=== PATIENT | female | born 1980 | race American Indian/Alaskan Native ===

== ENCOUNTER 2018-09-16 17:30 | Emergency (ER) | payer BC, OTHER ==
[2018-09-16] MEDS ORDERED: ATIVAN IV ONE (17:56)
[2018-09-16 18:16] LABS: Basophils # (Auto) 0.1 K/mm3 (0.0-0.1); Basophils % (Auto) 0.9 % (0.0-1.8); Eosinophils % (Auto) 0.5 % (0.0-4.3); Hematocrit 34.3 % (30.3-42.9); Hemoglobin 11.1 gm/dl (10.1-14.3); Lymphocytes # (Auto) 1.3 K/mm3 (1.2-5.4); Lymphocytes % (Auto) 15.4 % (13.4-35.0); Mean Corpuscular HGB Conc 32 % (30-34); Mean Corpuscular Volume 71 fl (79-97); Monocytes # (Auto) 0.3 K/mm3 (0.0-0.8); Platelet Count 343 K/mm3 (140-440); Red Blood Count 4.83 M/mm3 (3.65-5.03); Red Cell Distribution Width 16.1 % (13.2-15.2)
--- NOTE | 2018-09-16 18:33 | Emergency Department Report ---
<ZEFERINO VERA - Last Filed: 09/17/18 05:31> ED Seizure HPI - General Chief Complaint: Seizure Stated Complaint: SEIZURES Time Seen by Provider: 09/16/18 17:55 - Related Data Home Medications Medication Instructions Recorded Confirmed Last Taken Lacosamide [Vimpat] 100 mg PO BID 09/16/18 09/16/18 Unknown Allergies Allergy/AdvReac Type Severity Reaction Status Date / Time No Known Allergies Allergy Verified 08/09/15 15:29 ED Past Medical Hx - Medications Home Medications: Home Medications Medication Instructions Recorded Confirmed Last Taken Type Lacosamide [Vimpat] 100 mg PO BID 09/16/18 09/16/18 Unknown History ED Course - Reevaluation(s) Reevaluation #1: 09/17/18 04:16 Patient was found by nursing team at, around 01:14) The patient was on the floor, shaking. With the patient up onto the stretcher. She was given 2 mg of Ativan IM. She was still shaking. She got an additional 2 mg of Ativan IM. She is in [place] with 1 g of Keppra. She is placed back on the monitor and storage bin tender. Noncontrast CT scan of the brain, cervical spine were obtained. They were negative for acute disease. Patient has been sleeping for hours, and in no acute distress. No additional convulsive events. Plan is to wait for the patient to wake up, and discharged when sober, and able to walk without difficulty. Reevaluation #2: 09/17/18 05:31 Patient has had no convulsive events. She is still sleepy. Care will be transferred to the oncoming physician, Dr. Estee Mcdowell to reassess patient once she is awake and sober, and discharged when she is clinically sober, and able to care for herself independently. Of note, before the patient had her convulsive episode, she was instructed to not drive or operate motor vehicles for the next 6 months. ED Medical Decision Making - Lab Data Result diagrams: 09/16/18 18:06 09/16/18 18:06 Vital Signs 09/16/18 09/16/18 09/16/18 18:22 18:25 18:54 Temperature 99.3 F 99.3 F Pulse Rate 96 H 97 H Respiratory 13 13 20 Rate Blood Pressure 142/100 Blood Pressure 142/100 [Right] O2 Sat by Pulse 97 97 100 Oximetry 09/16/18 09/16/18 09/16/18 19:15 20:00 21:01 Temperature 98.9 F Pulse Rate 85 84 88 Respiratory 22 19 22 Rate Blood Pressure 126/80 135/90 Blood Pressure 130/79 [Right] O2 Sat by Pulse 99 95 Oximetry 09/16/18 09/16/18 09/17/18 22:01 23:00 00:00 Temperature Pulse Rate 97 H 84 80 Respiratory 22 22 15 Rate Blood Pressure 119/74 135/94 123/91 Blood Pressure [Right] O2 Sat by Pulse 99 Oximetry 09/17/18 09/17/18 09/17/18 01:00 02:00 03:00 Temperature Pulse Rate 79 83 78 Respiratory 19 19 18 Rate Blood Pressure 118/79 116/78 116/80 Blood Pressure [Right] O2 Sat by Pulse 98 98 97 Oximetry Lab Results 09/16/18 09/16/18 09/16/18 Range/Units 18:06 18:06 18:06 WBC 8.4 (4.5-11.0) K/mm3 RBC 4.83 (3.65-5.03) M/mm3 Hgb 11.1 (10.1-14.3) gm/dl Hct 34.3 (30.3-42.9) % MCV 71 L (79-97) fl MCH 23 L (28-32) pg MCHC 32 (30-34) % RDW 16.1 H (13.2-15.2) % Plt Count 343 (140-440) K/mm3 Lymph % (Auto) 15.4 (13.4-35.0) % [place] % (Auto) 4.0 (0.0-7.3) % Eos % (Auto) 0.5 (0.0-4.3) % Baso % (Auto) 0.9 (0.0-1.8) % Lymph # 1.3 (1.2-5.4) K/mm3 [place] # 0.3 (0.0-0.8) K/mm3 Eos # 0.0 (0.0-0.4) K/mm3 Baso # 0.1 (0.0-0.1) K/mm3 Seg Neutrophils % 79.2 H (40.0-70.0) % Seg Neutrophils # 6.7 (1.8-7.7) K/mm3 Sodium 141 (137-145) mmol/L Potassium 3.2 L (3.6-5.0) mmol/L Chloride 103.5 (98-107) mmol/L Carbon Dioxide 24 (22-30) mmol/L Anion Gap 17 mmol/L BUN 7 (7-17) mg/dL Creatinine 0.6 L (0.7-1.2) mg/dL Estimated GFR > 60 ml/min BUN/Creatinine Ratio 12 % Glucose 105 H (65-100) mg/dL Calcium 9.8 (8.4-10.2) mg/dL Magnesium (1.7-2.3) mg/dL Total Creatine Kinase (30-135) units/L Troponin T (0.00-0.029) ng/mL HCG, Qual Negative (Negative) Urine Color (Yellow) Urine Turbidity (Clear) Urine pH (5.0-7.0) Ur Specific [place] (1.003-1.030) Urine Protein (Negative) mg/dL Urine Glucose (UA) (Negative) mg/dL Urine Ketones (Negative) mg/dL Urine Blood (Negative) Urine Nitrite (Negative) Urine Bilirubin (Negative) Urine Urobilinogen (<2.0) mg/dL Ur Leukocyte Esterase (Negative) Urine WBC (Auto) (0.0-6.0) /HPF Urine RBC (Auto) (0.0-6.0) /HPF U Epithel Cells (Auto) (0-13.0) /HPF Urine Mucus /HPF 09/16/18 09/17/18 09/17/18 Range/Units 18:31 00:49 01:31 WBC (4.5-11.0) K/mm3 RBC (3.65-5.03) M/mm3 Hgb (10.1-14.3) gm/dl Hct (30.3-42.9) % MCV (79-97) fl MCH (28-32) pg MCHC (30-34) % RDW (13.2-15.2) % Plt Count (140-440) K/mm3 Lymph % (Auto) (13.4-35.0) % [place] % (Auto) (0.0-7.3) % Eos % (Auto) (0.0-4.3) % Baso % (Auto) (0.0-1.8) % Lymph # (1.2-5.4) K/mm3 [place] # (0.0-0.8) K/mm3 Eos # (0.0-0.4) K/mm3 Baso # (0.0-0.1) K/mm3 Seg Neutrophils % (40.0-70.0) % Seg Neutrophils # (1.8-7.7) K/mm3 Sodium (137-145) mmol/L Potassium (3.6-5.0) mmol/L Chloride (98-107) mmol/L Carbon Dioxide (22-30) mmol/L Anion Gap mmol/L BUN (7-17) mg/dL Creatinine (0.7-1.2) mg/dL Estimated GFR ml/min BUN/Creatinine Ratio % Glucose (65-100) mg/dL Calcium (8.4-10.2) mg/dL Magnesium 1.80 (1.7-2.3) mg/dL Total Creatine Kinase 220 H (30-135) units/L Troponin T < 0.010 (0.00-0.029) ng/mL HCG, Qual (Negative) Urine Color Yellow (Yellow) Urine Turbidity Clear (Clear) Urine pH 6.0 (5.0-7.0) Ur Specific [place] 1.023 (1.003-1.030) Urine Protein <15 mg/dl (Negative) mg/dL Urine Glucose (UA) Neg (Negative) mg/dL Urine Ketones Neg (Negative) mg/dL Urine Blood Neg (Negative) Urine Nitrite Neg (Negative) Urine Bilirubin Neg (Negative) Urine Urobilinogen < 2.0 (<2.0) mg/dL Ur Leukocyte Esterase Neg (Negative) Urine WBC (Auto) 1.0 (0.0-6.0) /HPF Urine RBC (Auto) < 1.0 (0.0-6.0) /HPF U Epithel Cells (Auto) < 1.0 (0-13.0) /HPF Urine Mucus 2+ /HPF - Radiology Data Radiology results: report reviewed, image reviewed Noncontrast CT scan of the brain, cervical spine negative for acute disease Critical Care Time: Yes Critical care time in (mins) excluding proc time.: 35 ED Disposition Clinical Impression: Seizure Disposition: DC- TO HOME OR SELFCARE Condition: Stable Instructions: Epilepsy (ED), Recurrent Seizures Adult (ED) Referrals: PRIMARY CARE, [Referring] - 3-5 Days POONAM ESPARZA MD [Referring] - 3-5 Days <CLEM MCDOWELL - Last Filed: 09/17/18 06:25> ED Medical Decision Making - Lab Data Result diagrams: 09/16/18 18:06 09/16/18 18:06 - Radiology Data Patient reevaluated by me at 6:25 AM and she is alert and oriented. Discussed with patient that she would be discharged home which she was in agreement with. <CYNTHIA NIEVESAbdulaziz - Last Filed: 09/17/18 19:47> ED Seizure HPI - General Source: family, EMS Mode of arrival: Stretcher Limitations: No Limitations - History of Present Illness Initial Comments: 38-year-old female presents to the ED following a seizure. History of seizures for which she takes Vimpat 4 times a day. Patient forgot to take her dose this morning, called her mother stating that she felt as if she was going to have a seizure, so mother brought patient's medication to her workplace. Patient took 2 pills instead of one since she forgot to take it this morning. Patient's s ister states she received a call from patient's job that the patient had a seizure. Patient is currently somewhat combative, however follows commands. Sister says this behavior that she is currently exhibiting is normal for her postictal state, and sometimes lasts for several hours. Complaint: seizure -: This afternoon Description of Episode: post-event confusion Seizure History: known seizure disorder Place: work Possible Precipitating Event: medication Treatments Prior to Arrival: none ED Review of Systems ROS: Stated complaint: SEIZURES Other details as noted in HPI Comment: All other systems reviewed and negative Cardiovascular: chest pain Gastrointestinal: denies: abdominal pain Neurological: denies: headache ED Past Medical Hx - Surgical History Additional Surgical History: breast reduction - Social History Smoking Status: Never Smoker Substance Use Type: None ED Physical Exam - General Limitations: No Limitations General appearance: alert, in no apparent distress - Head Head exam: Present: atraumatic, normocephalic - Eye Eye exam: Present: normal appearance, PERRL, EOMI - ENT ENT exam: Present: mucous membranes moist - Neck Neck exam: Present: normal inspection - Respiratory Respiratory exam: Present: normal lung sounds bilaterally. Absent: respiratory distress - Cardiovascular Cardiovascular Exam: Present: regular rate, normal rhythm - GI/Abdominal GI/Abdominal exam: Present: soft. Absent: distended, tenderness - Extremities Exam Extremities exam: Present: normal inspection - Neurological Exam Neurological exam: Present: alert, altered (oriented x 2, confused about the da te), CN II-XII intact, other (pt mildly spastic and combative, but is re- directable and will follow commands). Absent: motor sensory deficit - Psychiatric Psychiatric exam: Present: normal affect, normal mood - Skin Skin exam: Present: warm, dry, intact, normal color ED Course Vital Signs 09/16/18 09/16/18 09/16/18 18:22 18:25 18:54 Temperature 99.3 F 99.3 F Pulse Rate 96 H 97 H Respiratory 13 13 20 Rate Blood Pressure 142/100 Blood Pressure 142/100 [Right] O2 Sat by Pulse 97 97 100 Oximetry 09/16/18 09/16/18 09/16/18 19:15 20:00 21:01 Temperature 98.9 F Pulse Rate 85 84 88 Respiratory 22 19 22 Rate Blood Pressure 126/80 135/90 Blood Pressure 130/79 [Right] O2 Sat by Pulse 99 95 Oximetry 09/16/18 09/16/18 09/17/18 22:01 23:00 00:00 Temperature Pulse Rate 97 H 84 80 Respiratory 22 22 15 Rate Blood Pressure 119/74 135/94 123/91 Blood Pressure [Right] O2 Sat by Pulse 99 Oximetry 09/17/18 09/17/18 09/17/18 01:00 02:00 03:00 Temperature Pulse Rate 79 83 78 Respiratory 19 19 18 Rate Blood Pressure 118/79 116/78 116/80 Blood Pressure [Right] O2 Sat by Pulse 98 98 97 Oximetry 09/17/18 09/17/18 09/17/18 04:01 05:00 06:01 Temperature Pulse Rate 75 76 105 H Respiratory 20 20 19 Rate Blood Pressure 127/86 134/82 134/82 Blood Pressure [Right] O2 Sat by Pulse 96 97 Oximetry ED Medical Decision Making - Lab Data Result diagrams: 09/16/18 18:06 09/16/18 18:06 - EKG Data -: EKG Interpreted by Ny EKG shows normal: sinus rhythm, axis, intervals, QRS complexes, ST-T waves Rate: normal - EKG Data Interpretation: no acute changes - Differential Diagnosis seizure, med noncompliance, electrolyte abnormality Critical care attestation.: If time is entered above; I have spent that time in minutes in the direct care of this critically ill patient, excluding procedure time. ED Disposition Is pt being admited?: No
[2018-09-16 18:39] LABS: BUN/Creatinine Ratio 12; Blood Urea Nitrogen 7 mg/dL (7-17); Calcium 9.8 mg/dL (8.4-10.2); Hemolysis Index 25
[2018-09-16] MEDS ORDERED: K-DUR PO ONE (19:06)
[2018-09-16] MEDS ORDERED: ATIVAN ONE ×2 (22:38→22:40)
[2018-09-16] MEDS ORDERED: KEPPRA 1,000 MG/NS 0.75% 100ML 1,000 MG/100 ML BAG IV ONE ×2 (22:41→23:00)
[2018-09-16] MEDS ORDERED: ATIVAN IM STA ×2 (23:41)
[2018-09-17 02:04] LABS: Bilirubin,Urine NEG (Negative); Blood,Urine NEG (Negative); Color,Urine Yellow (Yellow); Mucus,Urine 2+ /HPF; Protein,Urine <15 mg/dL mg/dL (Negative); RBC,Urine < 1.0 /HPF (0.0-6.0); Urobilinogen,Urine < 2.0 mg/dL (<2.0)
--- NOTE | 2018-09-17 02:38 | Cat Scan Report ---
PROCEDURE: CT HEAD/BRAIN WO CON TECHNIQUE: Computerized tomography of the head was performed without contrast material. CT DOSE LENGTH PRODUCT: mGycm HISTORY: sz fall ams COMPARISONS: None . FINDINGS: Skull and scalp: Normal . Paranasal sinuses: Normal . Ventricles and subarachnoid spaces: Normal . Cerebrum: No evidence of hemorrhage, acute infarction or mass . Cerebellum and brainstem: No evidence of hemorrhage, acute infarction or mass . Vasculature: Normal . IMPRESSION: Normal Examination . This document is electronically signed by Rj Ansari MD., September 17 2018 02:36:55 AM ET
--- NOTE | 2018-09-17 02:54 | Cat Scan Report ---
PROCEDURE: CT CERVICAL SPINE WO CON TECHNIQUE: Computerized tomography of the cervical spine was performed from the skull base to T1 wit hout contrast material. CT DOSE LENGTH PRODUCT: mGycm HISTORY: sz fall ams COMPARISONS: None . FINDINGS: Skull base and foramen magnum are intact. Cervical vertebrae are intact. There are no fractures or ma lalignments. C1-2: No significant abnormality . C2-3: No significant abnormality . C3-4: No significant abnormality . C4-5: No significant abnormality . C5-6: No significant abnormality . C6-7: No significant abnormality . C7-T1: No significant abnormality . Fractures: None . Other: Soft tissues are unremarkable. . Images of the upper thorax demonstrate possible mediastinal mass versus artifact. Correlation with est x-ray recommended. IMPRESSION: There is no acute cervical spine injury. Images of the upper thorax demonstrate possible mediastinal mass versus artifact. Correlation with est x-ray recommended. This document is electronically signed by Rj Ansari MD., September 17 2018 02:52:34 AM ET
[2018-09-17 05:15] VITALS: BP 134/82
== END 2018-09-17 07:30 | disposition home or self-care (01) ==
LOC: ED 17:30
DX: G40.909 Epilepsy, unspecified, not intractable, without status epilepticus (principal)
CPT/HCPCS: 36415; 70450; 72125; 80048; 81001; 82550; 83735; 84484; 84703; 85025; 93005; 93010; 96365; 96372; 96375; 99285; J1953; J2060

== ENCOUNTER 2021-06-20 17:52 | Emergency (ER) | payer OTHER ==
[2021-06-20] MEDS ORDERED: BRIVARACETAM 100 MG PO STA (17:58)
[2021-06-20] MEDS ORDERED: NON-FORMULARY EACH (Lacosamide [Vimpat] 200 MG Tablet) PO STA (17:58)
[2021-06-20] MEDS ORDERED: levETIRAcetam 500 MG TAB PO ONE (17:59)
--- NOTE | 2021-06-20 18:04 | Event Note ---
Date: 06/20/21 The patient was evaluated in the emergency department for symptoms described in the history of present illness. He/she was evaluated in the context of the global COVID-19 pandemic, which necessitated consideration that the patient might be at risk for infection with the virus that causes COVID-19. Institutional protocols and algorithms that pertain to the evaluation of patients at risk for COVID-19 are in a state of rapid change based on information released by regulatory bodies including the CDC and federal and state organizations. These policies and algorithms were followed during the patient's care in the emergency department. Please note that these policies, procedures and recommendations changed on a rapid basis. Verbal report received from emergency medical services. EMS documentation not available at time of chart dictation Old medical records reviewed and appreciated. Patient is a 40-year-old female, who reports that she is not , and reports that she has not delivered her given in the past 6 weeks. Patient recently admitted to the medical service last month for convulsive event please see recent discharge summary. Patient brought to the hospital today by emergency medical services with an EMS articulated complaint of patient having had seizures at school. As per review of old medical records, patient has a history of amphetamine and/or possible cocaine abuse. They report that the patient had normal vital signs in the field, and further report that the patient was sitting on a chair/desk, and that Deysi is by called 911. The patient is intermittently compliant with her Vimpat and Keppra. She complains of chest wall pain present for 1 month. She denies travel, surgery, leg pain, leg swelling oral contraceptive use. She denies drug use to myself. Place patient on phototypesetting equipment monitor, obtain EKG, laboratory studies, give patient oral Keppra, oral Vimpat, detailed history and physical examination to be performed by oncoming ER provider Vital Signs 06/20/21 17:53 Pulse Rate 93 H Respiratory 16 Rate Blood Pressure 136/94 [Left] O2 Sat by Pulse 98 Oximetry
[2021-06-20] MEDS ORDERED: LACOSAMIDE 100 MG TAB PO STA (18:08)
[2021-06-20 20:33] LABS: Blood Urea Nitrogen 6 mg/dL (7-17); Calcium 9.7 mg/dL (8.4-10.2); Hemolysis Index 8
[2021-06-20 20:36] LABS: BUN/Creatinine Ratio 12
[2021-06-20 20:37] LABS: Hematocrit 30.2 % (30.3-42.9); Hemoglobin 8.9 gm/dl (10.1-14.3)
--- NOTE | 2021-06-20 22:59 | Emergency Department Report ---
ED Seizure HPI - General Chief Complaint: Seizure Stated Complaint: SEIZURES Source: EMS Mode of arrival: Stretcher Limitations: No Limitations - History of Present Illness Initial Comments: Patient is a 40-year-old female, who reports that she is not , and reports that she has not delivered her given in the past 6 weeks. Patient recently admitted to the medical service last month for convulsive event please see recent discharge summary. Patient brought to the hospital today by emergency medical services with an EMS articulated complaint of patient having had seizures at school. As per review of old medical records, patient has a history of amphetamine and/or possible cocaine abuse. They report that the patient had normal vital signs in the field, and further report that the patient was sitting on a chair/desk, and that Deysi is by called 911. The patient is intermittently compliant with her Vimpat and Keppra. She complains of chest wall pain present for 1 month. She denies travel, surgery, leg pain, leg swelling oral contraceptive use. She denies drug use to myself. MD Complaint: seizure - Related Data Home Medications Medication Instructions Recorded Confirmed Last Taken Brivaracetam [Briviact] 100 mg PO BID 05/14/21 05/14/21 Unknown Lacosamide [Vimpat] 200 mg PO BID 05/14/21 05/14/21 Unknown amLODIPine 10 mg PO DAILY 05/14/21 05/14/21 Unknown Previous Rx's Medication Instructions Recorded Last Taken Type Potassium Chloride [K-Dur] 10 meq PO QDAY #14 05/20/21 Unknown Rx Spironolactone [Aldactone] 50 mg PO QDAY #30 tablet 05/20/21 Unknown Rx Allergies Allergy/AdvReac Type Severity Reaction Status Date / Time No Known Allergies Allergy Verified 05/14/21 15:52 ED Review of Systems ROS: Stated complaint: SEIZURES Other details as noted in HPI Comment: All other systems reviewed and negative Constitutional: denies: chills, fever Respiratory: denies: cough, shortness of breath, SOB with exertion Cardiovascular: denies: chest pain, palpitations Gastrointestinal: denies: abdominal pain, nausea, vomiting ED Past Medical Hx - Past Medical History Hx Hypertension: Yes Hx Congestive Heart Failure: No Hx Diabetes: No Hx Seizures: Yes Hx Asthma: No Hx COPD: No - Surgical History Additional Surgical History: breast reduction - Social History Smoking Status: Never Smoker - Medications Home Medications: Home Medications Medication Instructions Recorded Confirmed Last Taken Type Brivaracetam [Briviact] 100 mg PO BID 05/14/21 05/14/21 Unknown History Lacosamide [Vimpat] 200 mg PO BID 05/14/21 05/14/21 Unknown History amLODIPine 10 mg PO DAILY 05/14/21 05/14/21 Unknown History Potassium Chloride [K-Dur] 10 meq PO QDAY #14 05/20/21 Unknown Rx Spironolactone [Aldactone] 50 mg PO QDAY #30 tablet 05/20/21 Unknown Rx ED Physical Exam - General Limitations: No Limitations General appearance: alert, in no apparent distress - Head Head exam: Present: atraumatic, normocephalic, normal inspection - Eye Eye exam: Present: normal appearance - ENT ENT exam: Present: normal exam, normal orophraynx, mucous membranes moist - Neck Neck exam: Present: normal inspection, full ROM. Absent: tenderness, meningismus - Respiratory Respiratory exam: Present: normal lung sounds bilaterally - Cardiovascular Cardiovascular Exam: Present: regular rate, normal rhythm, normal heart sounds - GI/Abdominal GI/Abdominal exam: Present: soft, normal bowel sounds. Absent: distended, tenderness, guarding, rebound, rigid - Neurological Exam Neurological exam: Present: alert, oriented X3, CN II-XII intact. Absent: motor sensory deficit - Psychiatric Psychiatric exam: Present: normal mood. Absent: suicidal ideation - Skin Skin exam: Present: warm, intact, normal color ED Course Vital Signs 06/20/21 17:53 Pulse Rate 93 H Respiratory 16 Rate Blood Pressure 136/94 [Left] O2 Sat by Pulse 98 Oximetry ED Medical Decision Making - Lab Data Result diagrams: 06/20/21 20:03 06/20/21 20:03 Critical care attestation.: If time is entered above; I have spent that time in minutes in the direct care of this critically ill patient, excluding procedure time. ED Disposition Clinical Impression: Seizure Disposition: 01 HOME / SELF CARE / HOMELESS Is pt being admited?: No Condition: Stable Instructions: Seizure, Adult Referrals: PRIMARY CARE,MD [Primary Care Provider] - 3-5 Days
[2021-06-20 23:11] VITALS: BP 144/72
== END 2021-06-20 23:09 | disposition home or self-care (01) ==
LOC: ED 17:52
DX: R56.9 Unspecified convulsions (principal); I10 Essential (primary) hypertension; Z98.890 Other specified postprocedural states; Z79.899 Other long term (current) drug therapy
CPT/HCPCS: 36415; 80048; 80320; 82550; 83735; 85014; 85018; 93005; 99283; G0480

== ENCOUNTER 2021-11-30 03:30 | Emergency (ER) | payer SELFPAY ==
[2021-11-30] MEDS ORDERED: LORazepam 2 MG/ML VIAL ONE (03:38)
[2021-11-30] MEDS ORDERED: LORazepam 2 MG/ML VIAL IV ONE (03:57)
[2021-11-30] MEDS ORDERED: levETIRAcetam 1000 MG/NS 0.75% 1,000 MG/100 ML BAG IV ONE (03:57)
[2021-11-30 04:55] LABS: Basophils # (Auto) 0.1 K/mm3 (0.0-0.1); Eosinophils # (Auto) 0.1 K/mm3 (0.0-0.4); Eosinophils % (Auto) 1.3 % (0.0-4.3); Lymphocytes # (Auto) 1.6 K/mm3 (1.2-5.4); Lymphocytes % (Auto) 28.3 % (13.4-35.0); Mean Corpuscular HGB Conc 29 % (30-34); Monocytes # (Auto) 0.4 K/mm3 (0.0-0.8); Monocytes % (Auto) 7.7 % (0.0-7.3); Platelet Count 326 K/mm3 (140-440); Red Blood Count 4.74 M/mm3 (3.65-5.03)
[2021-11-30 04:59] LABS: Hematocrit 25.8 % (30.3-42.9); Hemoglobin 7.5 gm/dl (10.1-14.3); Mean Corpuscular Volume 55 fl (79-97); Red Cell Distribution Width 21.7 % (13.2-15.2)
[2021-11-30 05:13] LABS: Blood Urea Nitrogen 9 mg/dL (7-17); Calcium 9.4 mg/dL (8.4-10.2); Hemolysis Index 1
[2021-11-30 05:53] LABS: BUN/Creatinine Ratio 15
[2021-11-30] MEDS ORDERED: POTASSIUM CHLORIDE ER 20 MEQ TAB PO ONE (06:59)
--- NOTE | 2021-11-30 09:07 | Emergency Department Report ---
ED Seizure HPI - General Chief Complaint: Seizure Stated Complaint: SEIZURE Time Seen by Provider: 11/30/21 06:59 Source: EMS Mode of arrival: Ambulatory Limitations: No Limitations - History of Present Illness Initial Comments: Patient is a 41-year-old female with history of seizures brought in for evaluation after having a seizure. She reportedly recently had her seizure medications increased and has not been compliant with her meds citing side eff ects. - Related Data Home Medications Medication Instructions Recorded Confirmed Last Taken Brivaracetam [Briviact] 100 mg PO BID 05/14/21 05/14/21 Unknown Lacosamide [Vimpat] 200 mg PO BID 05/14/21 05/14/21 Unknown amLODIPine 10 mg PO DAILY 05/14/21 05/14/21 Unknown Previous Rx's Medication Instructions Recorded Last Taken Type Potassium Chloride [K-Dur] 10 meq PO QDAY #14 05/20/21 Unknown Rx Spironolactone [Aldactone] 50 mg PO QDAY #30 tablet 05/20/21 Unknown Rx Lacosamide [Vimpat] 200 mg PO BID #60 06/20/21 Unknown Rx levETIRAcetam [Keppra TAB] 500 mg PO BID #60 tablet 06/20/21 Unknown Rx Allergies Allergy/AdvReac Type Severity Reaction Status Date / Time No Known Allergies Allergy Verified 05/14/21 15:52 ED Review of Systems ROS: Stated complaint: SEIZURE Other details as noted in HPI Comment: Unobtainable due to pts medical conditions (Postictal) ED Past Medical Hx - Past Medical History Hx Hypertension: Yes Hx Congestive Heart Failure: No Hx Diabetes: No Hx Seizures: Yes Hx Asthma: No Hx COPD: No - Surgical History Additional Surgical History: breast reduction - Social History Smoking Status: Unknown if ever smoked Substance Use Type: Other - Medications Home Medications: Home Medications Medication Instructions Recorded Confirmed Last Taken Type Brivaracetam [Briviact] 100 mg PO BID 05/14/21 05/14/21 Unknown History Lacosamide [Vimpat] 200 mg PO BID 05/14/21 05/14/21 Unknown History amLODIPine 10 mg PO DAILY 05/14/21 05/14/21 Unknown History Potassium Chloride [K-Dur] 10 meq PO QDAY #14 05/20/21 Unknown Rx Spironolactone [Aldactone] 50 mg PO QDAY #30 tablet 05/20/21 Unknown Rx Lacosamide [Vimpat] 200 mg PO BID #60 06/20/21 Unknown Rx levETIRAcetam [Keppra TAB] 500 mg PO BID #60 tablet 06/20/21 Unknown Rx ED Physical Exam - General Limitations: No Limitations General appearance: in no apparent distress, postictal - Head Head exam: Present: atraumatic, normocephalic - Respiratory Respiratory exam: Present: normal lung sounds bilaterally. Absent: respiratory distress - Cardiovascular Cardiovascular Exam: Present: regular rate, normal rhythm, normal heart sounds - GI/Abdominal GI/Abdominal exam: Present: soft. Absent: distended - Rectal Rectal exam: Present: deferred - Neurological Exam Neurological exam: Present: other (Postictal) - Skin Skin exam: Present: warm, dry, intact, normal color ED Course Vital Signs 11/30/21 11/30/21 11/30/21 03:32 03:49 03:54 Temperature 98.5 F 98.3 F Pulse Rate 91 H 89 Respiratory 16 19 19 Rate Blood Pressure 155/96 Blood Pressure 131/83 [Right] O2 Sat by Pulse 99 100 100 Oximetry 11/30/21 11/30/21 11/30/21 04:00 04:16 04:30 Temperature Pulse Rate 85 84 80 Respiratory 19 19 18 Rate Blood Pressure 131/83 131/83 110/69 Blood Pressure [Right] O2 Sat by Pulse 100 100 100 Oximetry 11/30/21 11/30/21 11/30/21 04:46 05:00 05:16 Temperature Pulse Rate 90 76 76 Respiratory 21 18 19 Rate Blood Pressure 110/69 110/70 110/70 Blood Pressure [Right] O2 Sat by Pulse 100 100 100 Oximetry 11/30/21 11/30/21 11/30/21 05:30 05:46 06:00 Temperature Pulse Rate 75 75 79 Respiratory 19 19 20 Rate Blood Pressure 93/56 93/56 93/56 Blood Pressure [Right] O2 Sat by Pulse 100 100 100 Oximetry 11/30/21 11/30/21 11/30/21 06:16 06:30 06:46 Temperature Pulse Rate 69 69 69 Respiratory 18 17 19 Rate Blood Pressure 103/67 103/67 Blood Pressure [Right] O2 Sat by Pulse 100 100 100 Oximetry 11/30/21 11/30/2111/30/22 07:00 07:16 07:30 Temperature Pulse Rate 89 73 70 Respiratory 19 18 20 Rate Blood Pressure 105/66 105/66 109/72 Blood Pressure [Right] O2 Sat by Pulse Oximetry 11/30/21 11/30/21 11/30/21 07:46 08:00 08:16 Temperature Pulse Rate 72 71 76 Respiratory 20 19 20 Rate Blood Pressure 109/72 106/63 106/63 Blood Pressure [Right] O2 Sat by Pulse Oximetry 11/30/21 11/30/21 11/30/21 08:30 08:46 09:00 Temperature Pulse Rate 71 77 75 Respiratory 19 22 23 Rate Blood Pressure 108/68 108/68 105/58 Blood Pressure [Right] O2 Sat by Pulse Oximetry 11/30/21 11/30/21 11/30/21 09:16 09:30 09:46 Temperature Pulse Rate 69 68 71 Respiratory 19 15 19 Rate Blood Pressure 105/58 110/67 110/67 Blood Pressure [Right] O2 Sat by Pulse Oximetry 11/30/21 11/30/21 11/30/21 10:00 10:16 10:30 Temperature Pulse Rate 68 71 67 Respiratory 20 19 19 Rate Blood Pressure 99/52 99/52 99/49 Blood Pressure [Right] O2 Sat by Pulse Oximetry 11/30/21 11/30/21 10:46 11:00 Temperature Pulse Rate 68 77 Respiratory 18 18 Rate Blood Pressure 99/49 96/64 Blood Pressure [Right] O2 Sat by Pulse Oximetry ED Medical Decision Making - Lab Data Result diagrams: 11/30/21 04:07 11/30/21 04:07 - Medical Decision Making Patient loaded with 1 g of IV Keppra. Labs reviewed. Mild hypokalemia noted at 3.1. Patient given oral replacement. On reassessment patient is alert and oriented. She is stable for discharge. Critical care attestation.: If time is entered above; I have spent that time in minutes in the direct care of this critically ill patient, excluding procedure time. ED Disposition Clinical Impression: Seizure Disposition: 01 HOME / SELF CARE / HOMELESS Is pt being admited?: No Condition: Stable Instructions: Seizure, Adult, [id number] Time of Disposition: 11:33
[2021-11-30 11:04] VITALS: BP 96/64
== END 2021-11-30 12:54 | disposition home or self-care (01) ==
LOC: ED 03:30
DX: R56.9 Unspecified convulsions (principal); I10 Essential (primary) hypertension; Z79.899 Other long term (current) drug therapy
CPT/HCPCS: 36415; 80048; 82962; 83735; 84703; 85025; 96374; 96375; 99284; J1953; J2060

== ENCOUNTER 2021-12-02 00:49 | Inpatient (IN) | payer SELFPAY ==
[2021-12-02] MEDS ORDERED: LORazepam 2 MG/ML VIAL IV ONE ×2 (01:02→10:19)
[2021-12-02] MEDS ORDERED: levETIRAcetam 1000 MG/NS 0.75% 1,000 MG/100 ML BAG IV ONE (02:04)
[2021-12-02] MEDS ORDERED: LACOSAMIDE 200 MG in SODIUM CHLORIDE 0.9% 100 ML IV ONE (02:05)
[2021-12-02 02:11] LABS: Blood Urea Nitrogen 9 mg/dL (7-17); Calcium 9.4 mg/dL (8.4-10.2); Hemolysis Index 34
[2021-12-02 02:12] LABS: BUN/Creatinine Ratio 15
--- NOTE | 2021-12-02 04:33 | Emergency Department Report ---
<MAGDALENEBRANDIE BHASKAR - Last Filed: 12/02/21 04:32> ED Seizure HPI - General Chief Complaint: Seizure Stated Complaint: SEIZURE Time Seen by Provider: 12/02/21 01:01 Source: patient Mode of arrival: Stretcher Limitations: No Limitations - History of Present Illness Initial Comments: Patient is a 41-year-old female with history of seizures brought in by EMS after having a seizure. She was seen here yesterday for the same and loaded with IV Keppra. Patient reportedly is noncompliant with her medications after recently having her dosages increased. - Related Data Home Medications Medication Instructions Recorded Confirmed Last Taken Brivaracetam [Briviact] 100 mg PO BID 05/14/21 05/14/21 Unknown Lacosamide [Vimpat] 200 mg PO BID 05/14/21 05/14/21 Unknown amLODIPine 10 mg PO DAILY 05/14/21 05/14/21 Unknown Previous Rx's Medication Instructions Recorded Last Taken Type Potassium Chloride [K-Dur] 10 meq PO QDAY #14 05/20/21 Unknown Rx Spironolactone [Aldactone] 50 mg PO QDAY #30 tablet 05/20/21 Unknown Rx Lacosamide [Vimpat] 200 mg PO BID #60 06/20/21 Unknown Rx levETIRAcetam [Keppra TAB] 500 mg PO BID #60 tablet 06/20/21 Unknown Rx Allergies Allergy/AdvReac Type Severity Reaction Status Date / Time No Known Allergies Allergy Verified 12/02/21 03:16 ED Review of Systems Comment: Unobtainable due to pts medical conditions ED Past Medical Hx - Past Medical History Previous Medical History?: Yes Hx Hypertension: Yes Hx Congestive Heart Failure: No Hx Diabetes: No Hx Seizures: Yes Hx Asthma: No Hx COPD: No - Surgical History Past Surgical History?: Yes Additional Surgical History: breast reduction - Social History Smoking Status: Unknown if ever smoked - Medications Home Medications: Home Medications Medication Instructions Recorded Confirmed Last Taken Type Brivaracetam [Briviact] 100 mg PO BID 05/14/21 05/14/21 Unknown History Lacosamide [Vimpat] 200 mg PO BID 05/14/21 05/14/21 Unknown History amLODIPine 10 mg PO DAILY 05/14/21 05/14/21 Unknown History Potassium Chloride [K-Dur] 10 meq PO QDAY #14 05/20/21 Unknown Rx Spironolactone [Aldactone] 50 mg PO QDAY #30 tablet 05/20/21 Unknown Rx Lacosamide [Vimpat] 200 mg PO BID #60 06/20/21 Unknown Rx levETIRAcetam [Keppra TAB] 500 mg PO BID #60 tablet 06/20/21 Unknown Rx ED Physical Exam - General Limitations: No Limitations General appearance: postictal - Head Head exam: Present: atraumatic, normocephalic - Respiratory Respiratory exam: Present: normal lung sounds bilaterally. Absent: respiratory distress - Cardiovascular Cardiovascular Exam: Present: regular rate, normal rhythm, normal heart sounds - GI/Abdominal GI/Abdominal exam: Present: soft. Absent: distended - Rectal Rectal exam: Present: deferred - Neurological Exam Neurological exam: Present: other (Postictal) - Skin Skin exam: Present: warm, dry, intact, normal color ED Medical Decision Making - Lab Data Result diagrams: 12/02/21 01:16 ED Disposition Clinical Impression: Status epilepticus Disposition: ADMITTED INPATIENT Condition: Fair <ЮЛИЯ ROYAL - Last Filed: 12/02/21 11:53> ED Review of Systems ROS: Stated complaint: SEIZURE Other details as noted in HPI ED Course Vital Signs 12/02/21 12/02/21 12/02/21 00:50 01:05 01:16 Temperature 98 F Pulse Rate 83 106 H 78 Respiratory 18 32 H 14 Rate Blood Pressure 132/85 134/79 O2 Sat by Pulse 100 100 Oximetry 12/02/21 12/02/21 12/02/21 01:30 01:46 02:00 Temperature Pulse Rate 71 76 72 Respiratory 19 19 17 Rate Blood Pressure 116/65 116/65 106/59 O2 Sat by Pulse 100 100 100 Oximetry 12/02/21 12/02/21 12/02/21 02:16 02:30 02:46 Temperature Pulse Rate 70 68 75 Respiratory 18 17 17 Rate Blood Pressure 106/59 91/43 91/43 O2 Sat by Pulse 100 100 100 Oximetry 12/02/21 12/02/21 12/02/21 03:00 03:16 03:30 Temperature Pulse Rate 69 96 H 86 Respiratory 17 22 19 Rate Blood Pressure 115/60 115/60 123/66 O2 Sat by Pulse 100 100 100 Oximetry 12/02/21 12/02/21 12/02/21 03:46 04:00 04:04 Temperature Pulse Rate 71 73 Respiratory 17 21 Rate Blood Pressure 123/66 102/56 O2 Sat by Pulse 100 100 100 Oximetry 12/02/21 12/02/21 12/02/21 04:16 04:30 04:46 Temperature Pulse Rate 70 69 71 Respiratory 19 19 19 Rate Blood Pressure 102/56 96/47 96/47 O2 Sat by Pulse 100 100 100 Oximetry 12/02/21 12/02/21 12/02/21 05:00 05:16 05:30 Temperature Pulse Rate 73 71 69 Respiratory 18 18 16 Rate Blood Pressure 114/64 114/64 90/47 O2 Sat by Pulse 100 100 100 Oximetry 12/02/21 12/02/21 12/02/21 05:46 06:00 06:16 Temperature Pulse Rate 69 72 74 Respiratory 18 20 19 Rate Blood Pressure 90/47 92/57 92/57 O2 Sat by Pulse 100 100 100 Oximetry 12/02/21 12/02/21 12/02/21 06:30 06:46 07:00 Temperature Pulse Rate 72 91 H 78 Respiratory 18 28 H 20 Rate Blood Pressure 113/64 113/64 133/74 O2 Sat by Pulse 100 100 100 Oximetry 12/02/21 12/02/21 12/02/21 07:16 07:30 07:46 Temperature Pulse Rate 78 76 71 Respiratory 19 28 H 19 Rate Blood Pressure 133/74 133/74 133/74 O2 Sat by Pulse 100 100 100 Oximetry 12/02/21 12/02/21 08:00 08:16 Temperature Pulse Rate 69 78 Respiratory 20 23 Rate Blood Pressure 111/63 111/63 O2 Sat by Pulse 100 100 Oximetry - Reevaluation(s) Reevaluation #1: 12/02/21 10:20 Patient had another generalized tonic-clonic seizure witnessed by nursing. Patient never recovered from postictal state. Will admit for status epilepticus ED Medical Decision Making - Lab Data Result diagrams: 12/02/21 10:33 12/02/21 01:16 Critical care attestation.: If time is entered above; I have spent that time in minutes in the direct care of this critically ill patient, excluding procedure time. ED Disposition Is pt being admited?: Yes Does the pt Need Aspirin: No Time of Disposition: 11:53 (Care transferred to hospitalist (Dr. Martin))
[2021-12-02] MEDS ORDERED: LORazepam 2 MG/ML VIAL ONE (10:17)
[2021-12-02 11:01] LABS: Basophils # (Auto) 0.1 K/mm3 (0.0-0.1); Basophils % (Auto) 1.4 % (0.0-1.8); Eosinophils % (Auto) 0.6 % (0.0-4.3); Hematocrit 25.3 % (30.3-42.9); Hemoglobin 7.5 gm/dl (10.1-14.3); Lymphocytes # (Auto) 1.8 K/mm3 (1.2-5.4); Lymphocytes % (Auto) 29.5 % (13.4-35.0); Mean Corpuscular HGB Conc 30 % (30-34); Mean Corpuscular Volume 55 fl (79-97); Monocytes # (Auto) 0.5 K/mm3 (0.0-0.8); Monocytes % (Auto) 7.4 % (0.0-7.3); Platelet Count 291 K/mm3 (140-440); Red Blood Count 4.63 M/mm3 (3.65-5.03); Red Cell Distribution Width 22.4 % (13.2-15.2)
[2021-12-02] MEDS ORDERED: MORPHINE 2 MG/1 ML INJ IV PRN (18:00)
[2021-12-02] MEDS ORDERED: ACETAMINOPHEN 325 MG TAB PO PRN (18:00)
--- NOTE | 2021-12-02 18:00 | History and Physical Report ---
History of Present Illness Date of examination: 12/02/21 Date of admission: 12/02/2021 Chief complaint: Seizures x2 in the emergency room Patient is postictal History of present illness: Patient is a 41-year-old female with history of seizures brought in by EMS after having a seizure. She was seen here yesterday for the same and loaded with IV Keppra. Patient reportedly is noncompliant with her medications after recently having her dosages increased. Patient continues to be postictal --had 1 more episode of seizures while in the emergency room-- - Past Medical History Previous Medical History?: Yes Hx Hypertension: Yes Hx Seizures: Yes - Surgical Histor --Past Surgical History?: Yes --Additional Surgical History: breast reduction - Social History --Smoking Status: Unknown if ever smoked - Medications --Home Medications: Home Medications Medication Instructions Recorded Confirmed Last Taken Type Brivaracetam [Briviact] 100 mg PO BID 05/14/21 05/14/21 Unknown History Lacosamide [Vimpat] 200 mg PO BID 05/14/21 05/14/21 Unknown History amLODIPine 10 mg PO DAILY 05/14/21 05/14/21 Unknown History Potassium Chloride [K-Dur] 10 meq PO QDAY #14 05/20/21 Unknown Rx Spironolactone [Aldactone] 50 mg PO QDAY #30 tablet 05/20/21 Unknown Rx Lacosamide [Vimpat] 200 mg PO BID #60 06/20/21 Unknown Rx levETIRAcetam [Keppra TAB] 500 mg PO BID #60 tablet 06/20/21 Unknown Rx Review of Systems Comment: Unobtainable due to pts medical conditions Medications and Allergies Allergies Allergy/AdvReac Type Severity Reaction Status Date / Time No Known Allergies Allergy Verified 12/02/21 03:16 Home Medications Medication Instructions Recorded Confirmed Last Taken Type Brivaracetam [Briviact] 100 mg PO BID 05/14/21 12/03/21 Unknown History Lacosamide [Vimpat] 200 mg PO BID 05/14/21 12/03/21 Unknown History amLODIPine 10 mg PO DAILY 05/14/21 12/03/21 Unknown History Potassium Chloride [K-Dur] 10 meq PO QDAY #14 05/20/21 12/03/21 Unknown Rx Spironolactone [Aldactone] 50 mg PO QDAY #30 tablet 05/20/21 12/03/21 Unknown Rx Lacosamide [Vimpat] 200 mg PO BID #60 06/20/21 12/03/21 Unknown Rx levETIRAcetam [Keppra TAB] 500 mg PO BID #60 tablet 06/20/21 12/03/21 Unknown Rx Exam - Constitutional Vitals: Temp Pulse Resp BP Pulse Ox 98 F 95 H 15 131/89 100 12/02/21 00:50 12/02/21 17:31 12/02/21 17:31 12/02/21 17:31 12/02/21 16:46 General appearance: Present: mild distress, well-nourished - EENT Eyes: Present: PERRL ENT: hearing intact, clear oral mucosa - Neck Neck: Present: supple, normal ROM - Respiratory Respiratory effort: normal Respiratory: bilateral: CTA - Cardiovascular Heart rate: 78 Rhythm: regular Heart Sounds: Present: S1 & S2. Absent: rub, click - Extremities Extremities: pulses symmetrical, No edema Peripheral Pulses: within normal limits - Abdominal General gastrointestinal: Present: soft, non-tender, non-distended, normal bowel sounds Female genitourinary: Present: normal - Integumentary Integumentary: Present: clear, warm, dry - Musculoskeletal Musculoskeletal: generalized weakness - Psychiatric Psychiatric: other (Altered sensorium-postictal) - Neurologic Neurologic: CNII-XII intact, moves all extremities - Allied Health Allied health notes reviewed: nursing, case management Results - Labs CBC & Chem 7: 12/03/21 05:26 12/03/21 05:26 Labs: Laboratory Last Values WBC 6.2 K/mm3 (4.5-11.0) 12/02/21 10:33 RBC 4.63 M/mm3 (3.65-5.03) 12/02/21 10:33 Hgb 7.5 gm/dl (10.1-14.3) L 12/02/21 10:33 Hct 25.3 % (30.3-42.9) L 12/02/21 10:33 MCV 55 fl (79-97) L 12/02/21 10:33 MCH 16 pg (28-32) L 12/02/21 10:33 MCHC 30 % (30-34) 12/02/21 10:33 RDW 22.4 % (13.2-15.2) H 12/02/21 10:33 Plt Count 291 K/mm3 (140-440) 12/02/21 10:33 Lymph % (Auto) 29.5 % (13.4-35.0) 12/02/21 10:33 [place] % (Auto) 7.4 % (0.0-7.3) H 12/02/21 10:33 Eos % (Auto) 0.6 % (0.0-4.3) 12/02/21 10:33 Baso % (Auto) 1.4 % (0.0-1.8) 12/02/21 10:33 Lymph # (Auto) 1.8 K/mm3 (1.2-5.4) 12/02/21 10:33 [place] # (Auto) 0.5 K/mm3 (0.0-0.8) 12/02/21 10:33 Eos # (Auto) 0.0 K/mm3 (0.0-0.4) 12/02/21 10:33 Baso # (Auto) 0.1 K/mm3 (0.0-0.1) 12/02/21 10:33 Seg Neutrophils % 61.1 % (40.0-70.0) 12/02/21 10:33 Seg Neutrophils # 3.8 K/mm3 (1.8-7.7) 12/02/21 10:33 Sodium 142 mmol/L (137-145) 12/02/21 01:16 Potassium 3.6 mmol/L (3.6-5.0) 12/02/21 01:16 Chloride 106.2 mmol/L (98-107) 12/02/21 01:16 Carbon Dioxide 24 mmol/L (22-30) 12/02/21 01:16 Anion Gap 15 mmol/L 12/02/21 01:16 BUN 9 mg/dL (7-17) 12/02/21 01:16 Creatinine 0.6 mg/dL (0.6-1.2) 12/02/21 01:16 Estimated GFR > 60 ml/min 12/02/21 01:16 BUN/Creatinine Ratio 15 % 12/02/21 01:16 Glucose 103 mg/dL (65-100) H 12/02/21 01:16 Calcium 9.4 mg/dL (8.4-10.2) 12/02/21 01:16 Magnesium 1.80 mg/dL (1.7-2.3) 12/02/21 10:33 Total Creatine Kinase 77 units/L (30-135) 12/02/21 10:33 Assessment and Plan Advance Directives: Yes (Full code) VTE prophylaxis?: Chemical Plan of care discussed with patient/family: Yes - Patient Problems (1) Acute encephalopathy Current Visit: Yes Status: Acute Plan to address problem: Secondary to seizures and postictal state (2) Status epilepticus Current Visit: Yes Status: Acute Plan to address problem: Patient initiated on IV Keppra Noncompliance Patient counseled about noncompliance Vimpat if necessary Neurology consult requested (3) DVT prophylaxis Current Visit: No Status: Acute Plan to address problem: On anticoagulation GI prophylaxis (4) Advance care planning Current Visit: Yes Status: Acute Plan to address problem: Disease education conducted, care plan discussed, diagnosis discussed, prognosis discussed. Patient acknowledged understanding and agreement with care plan. +30 minutes.
[2021-12-02] MEDS: LACOSAMIDE 200 MG in SODIUM CHLORIDE 0.9% 100 ML IV SCH (20:00)
[2021-12-02] MEDS: D5W/0.9% NACL 1,000 ML IV SCH (20:03)
[2021-12-02] MEDS: levETIRAcetam 1,000 MG in DEXTROSE 5% IN WATER 100 ML IV SCH (21:46)
[2021-12-02] MEDS: HEPARIN 5,000 UNIT/1 ML VIAL SUB-Q SCH (23:46)
[2021-12-02] MEDS: FAMOTIDINE 20 MG TAB PO SCH (23:47)
[2021-12-03 06:20] LABS: Basophils # (Auto) 0.1 K/mm3 (0.0-0.1); Basophils % (Auto) 1.2 % (0.0-1.8); Eosinophils # (Auto) 0.1 K/mm3 (0.0-0.4); Eosinophils % (Auto) 0.5 % (0.0-4.3); Hematocrit 25.4 % (30.3-42.9); Hemoglobin 7.5 gm/dl (10.1-14.3); Lymphocytes # (Auto) 2.9 K/mm3 (1.2-5.4); Lymphocytes % (Auto) 30.6 % (13.4-35.0); Mean Corpuscular HGB Conc 29 % (30-34); Monocytes # (Auto) 0.6 K/mm3 (0.0-0.8); Monocytes % (Auto) 5.9 % (0.0-7.3); Red Blood Count 4.67 M/mm3 (3.65-5.03)
[2021-12-03 06:28] LABS: Mean Corpuscular Volume 54 fl (79-97); Platelet Count 236 K/mm3 (140-440); Red Cell Distribution Width 22.3 % (13.2-15.2)
[2021-12-03] MEDS: LACOSAMIDE 200 MG in SODIUM CHLORIDE 0.9% 100 ML IV SCH ×3 (06:30→18:34)
[2021-12-03 06:39] LABS: Alanine Aminotransferase 6 units/L (7-56); Blood Urea Nitrogen 6 mg/dL (7-17); Calcium 9.3 mg/dL (8.4-10.2); Hemolysis Index 28
[2021-12-03 06:47] LABS: BUN/Creatinine Ratio 15
[2021-12-03] MEDS: ONDANSETRON 4 MG/2 ML INJ IV PRN (10:17)
[2021-12-03] MEDS: HEPARIN 5,000 UNIT/1 ML VIAL SUB-Q SCH ×2 (10:17→21:54)
[2021-12-03] MEDS: FAMOTIDINE 20 MG TAB PO SCH ×2 (10:17→21:54)
[2021-12-03] MEDS: levETIRAcetam 1,000 MG in DEXTROSE 5% IN WATER 100 ML IV SCH ×2 (10:31→21:54)
[2021-12-03] MEDS: D5W/0.9% NACL 1,000 ML IV SCH (10:45)
[2021-12-03] MEDS: LORazepam 2 MG/ML VIAL IV PRN (17:05)
[2021-12-04] MEDS: D5W/0.9% NACL 1,000 ML IV SCH (01:14)
--- NOTE | 2021-12-04 06:56 | Progress Note ---
Assessment and Plan - Patient Problems (1) Acute encephalopathy Current Visit: Yes Status: Acute Plan to address problem: Secondary to seizures and postictal state Postictal status improved Had 2-3 seizures today--generalized tonic-clonic but of less magnitude (2) Status epilepticus Current Visit: Yes Status: Acute Plan to address problem: Patient initiated on IV Keppra Noncompliance Patient counseled about noncompliance Vimpat if necessary Neurology consult requested (3) DVT prophylaxis Current Visit: No Status: Acute Plan to address problem: On anticoagulation GI prophylaxis (4) Advance care planning Current Visit: Yes Status: Acute Plan to address problem: Disease education conducted, care plan discussed, diagnosis discussed, prognosis discussed. Patient acknowledged understanding and agreement with care plan. +30 minutes. Subjective Date of service: 12/03/21 Principal diagnosis: Seizure disorder Interval history: Patient continues to have seizures Hence not discharged Patient on Keppra and Vimpat Neurology consult requested Objective - Constitutional Vitals: Vital Signs - 12hr 12/03/21 12/03/21 12/04/21 18:56 22:08 02:38 Temperature 98.0 F Pulse Rate 88 Respiratory 18 20 20 Rate Blood Pressure 122/73 O2 Sat by Pulse 99 99 99 Oximetry General appearance: Present: no acute distress, well-nourished - EENT Eyes: PERRL, EOM intact ENT: hearing intact, clear oral mucosa Ears: bilateral: normal - Neck Neck: supple, normal ROM - Respiratory Respiratory effort: normal Respiratory: bilateral: CTA - Breasts Breasts: normal - Cardiovascular Heart rate: 78 Rhythm: regular Heart Sounds: Present: S1 & S2. Absent: gallop, rub Extremities: pulses intact, No edema, normal color, Full ROM - Gastrointestinal General gastrointestinal: Present: soft, non-tender, non-distended, normal bowel sounds - Genitourinary Female genitourinary: normal - Integumentary Integumentary: clear, warm, dry - Musculoskeletal Musculoskeletal: 1, strength equal bilaterally - Neurologic Neurologic: moves all extremities - Psychiatric Psychiatric: memory intact, appropriate mood/affect, intact judgment & insight - Labs CBC & Chem 7: 12/03/21 05:26 12/03/21 05:26
[2021-12-04] MEDS: LACOSAMIDE 100 MG TAB PO SCH ×2 (08:12→22:05)
[2021-12-04] MEDS: levETIRAcetam 500 MG TAB PO SCH ×2 (09:10→22:05)
[2021-12-04] MEDS: FAMOTIDINE 20 MG TAB PO SCH ×2 (09:10→22:05)
[2021-12-04] MEDS: HEPARIN 5,000 UNIT/1 ML VIAL SUB-Q SCH ×2 (09:10→22:06)
[2021-12-04] MEDS: ONDANSETRON 4 MG/2 ML INJ IV PRN (09:10)
[2021-12-04] MEDS: LORazepam 2 MG/ML VIAL IV PRN (11:45)
--- NOTE | 2021-12-04 12:54 | Progress Note ---
Assessment and Plan Assessment and plan: Acute encephalopathy Status epilepticus Seizure disorder 12/04/2021. Patient reportedly had a seizure yesterday which prevented discharge. Patient currently on Keppra 1000 mg p.o. twice daily and Vimpat 200 mg p.o. twice daily. Await neurology consultation. Etiology of seizure disorder likely secondary to medical noncompliance. History Interval history: No new issues Hospitalist Physical - Constitutional Vitals: Temp Pulse Resp BP Pulse Ox 98.5 F 81 20 138/90 98 12/04/21 08:16 12/04/21 08:16 12/04/21 08:16 12/04/21 08:16 12/04/21 08:16 General appearance: Present: no acute distress, well-nourished - EENT Eyes: Present: PERRL, EOM intact ENT: hearing intact, clear oral mucosa, dentition normal - Neck Neck: Present: supple, normal ROM - Respiratory Respiratory effort: normal Respiratory: bilateral: CTA - Cardiovascular Rhythm: regular Heart Sounds: Present: S1 & S2. Absent: gallop, rub - Extremities Extremities: no ischemia, No edema, Full ROM - Abdominal General gastrointestinal: soft, non-tender, non-distended, normal bowel sounds - Integumentary Integumentary: Present: clear, warm, dry - Neurologic Neurologic: CNII-XII intact, moves all extremities Results - Labs CBC & Chem 7: 12/03/21 05:26 12/03/21 05:26 Labs: Laboratory Last Values WBC 9.6 K/mm3 (4.5-11.0) 12/03/21 05:26 RBC 4.67 M/mm3 (3.65-5.03) 12/03/21 05:26 Hgb 7.5 gm/dl (10.1-14.3) L 12/03/21 05:26 Hct 25.4 % (30.3-42.9) L 12/03/21 05:26 MCV 54 fl (79-97) L 12/03/21 05:26 MCH 16 pg (28-32) L 12/03/21 05:26 MCHC 29 % (30-34) L 12/03/21 05:26 RDW 22.3 % (13.2-15.2) H 12/03/21 05:26 Plt Count 236 K/mm3 (140-440) 12/03/21 05:26 Lymph % (Auto) 30.6 % (13.4-35.0) 12/03/21 05:26 [place] % (Auto) 5.9 % (0.0-7.3) 12/03/21 05:26 Eos % (Auto) 0.5 % (0.0-4.3) 12/03/21 05:26 Baso % (Auto) 1.2 % (0.0-1.8) 12/03/21 05:26 Lymph # (Auto) 2.9 K/mm3 (1.2-5.4) 12/03/21 05:26 [place] # (Auto) 0.6 K/mm3 (0.0-0.8) 12/03/21 05:26 Eos # (Auto) 0.1 K/mm3 (0.0-0.4) 12/03/21 05:26 Baso # (Auto) 0.1 K/mm3 (0.0-0.1) 12/03/21 05:26 Seg Neutrophils % 61.8 % (40.0-70.0) 12/03/21 05:26 Seg Neutrophils # 5.9 K/mm3 (1.8-7.7) 12/03/21 05:26 Sodium 142 mmol/L (137-145) 12/03/21 05:26 Potassium 3.6 mmol/L (3.6-5.0) 12/03/21 05:26 Chloride 107.8 mmol/L (98-107) H 12/03/21 05:26 Carbon Dioxide 24 mmol/L (22-30) 12/03/21 05:26 Anion Gap 14 mmol/L 12/03/21 05:26 BUN 6 mg/dL (7-17) L 12/03/21 05:26 Creatinine 0.4 mg/dL (0.6-1.2) L 12/03/21 05:26 Estimated GFR > 60 ml/min 12/03/21 05:26 BUN/Creatinine Ratio 15 % 12/03/21 05:26 Glucose 96 mg/dL (65-100) 12/03/21 05:26 Calcium 9.3 mg/dL (8.4-10.2) 12/03/21 05:26 Magnesium 1.80 mg/dL (1.7-2.3) 12/02/21 10:33 Total Bilirubin 0.40 mg/dL (0.1-1.2) 12/03/21 05:26 AST 21 units/L (5-40) 12/03/21 05:26 ALT 6 units/L (7-56) L 12/03/21 05:26 Alkaline Phosphatase 71 units/L (35-129) 12/03/21 05:26 Total Creatine Kinase 77 units/L (30-135) 12/02/21 10:33 Total Protein 7.3 g/dL (6.3-8.2) 12/03/21 05:26 Albumin 4.0 g/dL (3.9-5) 12/03/21 05:26 Albumin/Globulin Ratio 1.2 % 12/03/21 05:26 Stanley/IV: Voiding Method External Female Catheter Active Medications - Current Medications Current Medications: Generic Name Dose Route Start Last Admin Trade Name Freq PRN Reason Stop Dose Admin Acetaminophen 650 mg 12/02/21 18:00 Acetaminophen 325 Mg Tab PO Q4H PRN Pain MILD(1-3)/Fever >100.5/ANN Famotidine 20 mg 12/02/21 22:00 12/04/21 09:10 Famotidine 20 Mg Tab PO 20 mg BID JIN Administration Heparin Sodium (Porcine) 5,000 unit 12/02/21 22:00 12/04/21 09:10 Heparin 5,000 Unit/1 Ml Vial SUB-Q 5,000 unit Q12HR JIN Administration Dextrose/Sodium Chloride 1,000 mls @ 75 mls/hr 12/02/21 18:00 12/04/21 01:14 D5ns IV 75 mls/hr DIRECT JIN Administration Lacosamide 200 mg 12/04/21 08:00 12/04/21 08:12 Lacosamide 100 Mg Tab PO 200 mg Q12HR JIN Administration Levetiracetam 1,000 mg 12/04/21 10:00 12/04/21 09:10 Levetiracetam 500 Mg Tab PO 1,000 mg BID JIN Administration Lorazepam 1 mg 12/03/21 16:02 12/04/21 11:45 Lorazepam 2 Mg/Ml Vial IV 1 mg Q3H PRN Administration Seizures Morphine Sulfate 2 mg 12/02/21 18:00 Morphine 2 Mg/1 Ml Inj IV Q4H PRN Pain, Moderate (4-6) Ondansetron HCl 4 mg 12/02/21 18:00 12/04/21 09:10 Ondansetron 4 Mg/2 Ml Inj IV 4 mg Q8H PRN Administration Nausea And Vomiting Sodium Chloride 10 ml 12/02/21 22:00 12/04/21 09:10 Sodium Chloride 0.9% 10 Ml Flush Syringe IV 10 ml BID JIN Administration Sodium Chloride 10 ml 12/02/21 18:00 Sodium Chloride 0.9% 10 Ml Flush Syringe IV PRN PRN LINE FLUSH Nutrition/Malnutrition Assess - Dietary Evaluation Nutrition/Malnutrition Findings: Nutrition Notes Start: 12/03/21 18:44 Freq: Status: Active Protocol: Document 12/03/21 18:45 LORIE (Rec: 12/03/21 18:59 LORIE [id number]) Nutrition Notes 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 Current Diet Regular Diet (since D 12/02). Labs/Tests 12/03: Cl 107.8, BUN 6, Crea 0 .4. Pertinent Medications 12/03: D5/0.45ns 1000ml @ 75ml /hr, others nutritionally unremarkable. 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 Weight Status Obese Subjective/Other Information RD consult for skin risk assessment. Pt's PO intake of meals has been Good (100%) and well tolerated, according to ADL notes. Pt is on Room Air, O2 saturation @ 100%, according to Physical Assessment History notes. Pt passed bedside swallow assessment on 12/02, according to Swallow Screen notes. Pt shows no signs of concern for skin risk at the time, according to Physical Assessment History notes. Percent of energy/protein needs met: Prescribed Regular Diet provides for energy/protein needs (2,289 Kcal/89 g) during LOS. Burn Absent Trauma Absent GI Symptoms None Food Allergy No Skin Integrity/Comment Assessment WNL. 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 No Is Patient Ambulatory and/or Out of Bed Yes [facility]) [ 2175.914 NUTR.[id number]] Kcal/Kg value to use for calculation 16 Approximate Energy Requirements Using 1597 kcal/Kg Calculation Used for Recommendations Kcal/kg Additional Notes Protein: 0.8-1 g/Kg AdjBW; 63- 79 g/day. Fluids: 1 ml/Kcal, or as per MD. Nutrition Intervention Change Diet Order: Continue Regular Diet. Follow-Up By: 12/10/21 Additional Comments Continue monitoring food tolerance, %PO intake of meals , and BM.
--- NOTE | 2021-12-04 14:20 | Consultation ---
History of Present Illness Consult date: 12/04/21 Reason for Consult: Seizures Chief complaint: Seizure History of present illness: 41 yo female with seizure d/o, noncompliance, who presents with two days of seizure activity. seen in the ED the day prior to admission and the Keppra was increased but the patient was not able to take the adjusted dose. She is noted with another seizure. Currently, she is at her baseline. Past History Past Medical History: hypertension, other (seizure d/o) Past Surgical History: No surgical history Social history: no significant social history Family history: no significant family history Medications and Allergies Allergies Allergy/AdvReac Type Severity Reaction Status Date / Time No Known Allergies Allergy Verified 12/02/21 03:16 Home Medications Medication Instructions Recorded Confirmed Last Taken Type Brivaracetam [Briviact] 100 mg PO BID 05/14/21 12/03/21 Unknown History Lacosamide [Vimpat] 200 mg PO BID 05/14/21 12/03/21 Unknown History amLODIPine 10 mg PO DAILY 05/14/21 12/03/21 Unknown History Potassium Chloride [K-Dur] 10 meq PO QDAY #14 05/20/21 12/03/21 Unknown Rx Spironolactone [Aldactone] 50 mg PO QDAY #30 tablet 05/20/21 12/03/21 Unknown Rx Lacosamide [Vimpat] 200 mg PO BID #60 06/20/21 12/03/21 Unknown Rx levETIRAcetam [Keppra TAB] 500 mg PO BID #60 tablet 06/20/21 12/03/21 Unknown Rx Active Meds: Active Medications Acetaminophen (Acetaminophen 325 Mg Tab) 650 mg PO Q4H PRN PRN Reason: Pain MILD(1-3)/Fever >100.5/ANN Amlodipine Besylate (Amlodipine 10 Mg Tab) 10 mg PO DAILY JIN Famotidine (Famotidine 20 Mg Tab) 20 mg PO BID JIN Last Admin: 12/04/21 09:10 Dose: 20 mg Heparin Sodium (Porcine) (Heparin 5,000 Unit/1 Ml Vial) 5,000 unit SUB-Q Q12HR JIN Last Admin: 12/04/21 09:10 Dose: 5,000 unit Dextrose/Sodium Chloride (D5ns) 1,000 mls @ 75 mls/hr IV DIRECT JIN Last Admin: 12/04/21 01:14 Dose: 75 mls/hr Lacosamide (Lacosamide 100 Mg Tab) 200 mg PO Q12HR [facility] Last Admin: 12/04/21 08:12 Dose: 200 mg Levetiracetam (Levetiracetam 500 Mg Tab) 1,000 mg PO BID [facility] Last Admin: 12/04/21 09:10 Dose: 1,000 mg Lorazepam (Lorazepam 2 Mg/Ml Vial) 1 mg IV Q3H PRN PRN Reason: Seizures Last Admin: 12/04/21 11:45 Dose: 1 mg Morphine Sulfate (Morphine 2 Mg/1 Ml Inj) 2 mg IV Q4H PRN PRN Reason: Pain, Moderate (4-6) Ondansetron HCl (Ondansetron 4 Mg/2 Ml Inj) 4 mg IV Q8H PRN PRN Reason: Nausea And Vomiting Last Admin: 12/04/21 09:10 Dose: 4 mg Potassium Chloride (Potassium Chloride Er 10 Meq Tab) 10 meq PO QDAY [facility] Sodium Chloride (Sodium Chloride 0.9% 10 Ml Flush Syringe) 10 ml IV BID [facility] Last Admin: 12/04/21 09:10 Dose: 10 ml Sodium Chloride (Sodium Chloride 0.9% 10 Ml Flush Syringe) 10 ml IV PRN PRN PRN Reason: LINE FLUSH Spironolactone (Spironolactone 50 Mg Tab) 50 mg PO QDAY [facility] Review of Systems All systems: negative (as per hpi;) Physical Examination - Vital Signs Vital Signs: Vital Signs Temp Pulse Resp BP Pulse Ox 98 F 83 18 132/85 100 12/02/21 00:50 12/02/21 00:50 12/02/21 00:50 12/02/21 00:50 12/02/21 00:50 - Physical Exam Narrative exam: Gen: nad, well-nourished; Head: normocephalic; Eyes: no gaze deviation; no ptosis; ENT: normal vocalization; CVS: warm and well-perfused; Pulm: no respiratory distress; GI: appears non-distended; Ext: no cyanosis appreciated at distal extremities; Skin: no acute rash at distal extremities; Heme: no pathologic ecchymosis appreciated at distal extremities; Neuro: alert, oriented to name, age, month, year, [facility], no dysarthria, no aphasia, CN 2 - PERRL, visual gallow[place] grossly intact, CN 3, 4, 6 - EOMI, CN 5 - facial sensation symmetric to light touch, CN 7 - facial movement symmetric, CN 8 - hearing grossly intact, CN 9, 10 - uvula midline, CN 11 sym metric shoulder movement, CN 12 - tongue midline; Motor - at least 4/5 at all exts; Sensory - light touch symmetric, Cerebellar - fnf /hts intact, Gait - deferred secondary to seizure risk; Results - Laboratory Findings CBC and BMP: 12/03/21 05:26 12/03/21 05:26 Abnormal Lab Findings: Abnormal Labs 12/02/21 12/02/21 12/03/21 01:16 10:33 05:26 Hgb 7.5 L 7.5 L Hct 25.3 L 25.4 L MCV 55 L 54 L MCH 16 L 16 L MCHC 29 L RDW 22.4 H 22.3 H [place] % (Auto) 7.4 H Chloride BUN Creatinine Glucose 103 H ALT 12/03/21 05:26 Hgb Hct MCV MCH MCHC RDW [place] % (Auto) Chloride 107.8 H BUN 6 L Creatinine 0.4 L Glucose ALT 6 L Assessment and Plan 41 yo female with seizure d/o, noncompliance, who presents with two days of seizure activity. seen in the ED the day prior to admission and the Keppra was increased but the patient was not able to take the adjusted dose. She is noted with another seizure. Currently, she is at her baseline. 1. Seizure d/o - continue vimpat 200 mg po bid; keppra 750 mg po bid; seizure precautions / restrictions to stay in place until cleared by a neurologist; eeg / mri brain w/ wo contrast ordered. 2. Noncompliance - pt advised regarding relevance of compliance. 3. Symptomatic Anemia - low Hgb noted; further workup per primary team. 4. If MRI / EEG are unremarkable, patient is cleared by Neurology. Mario Bolaños MD Neurology [id number]
--- NOTE | 2021-12-04 17:59 | Magnetic Resonance Report ---
MR brain wo/w con INDICATION / CLINICAL INFORMATION: 41 years Female; Seizures. TECHNIQUE: Multiplanar, multisequence MR images of the brain were obtained. COMPARISON: The study is compared to the previous MRI of 05/16/2021. FINDINGS: BRAIN / INTRACRANIAL CONTENTS: The motion degrades image quality. However, there are scattered hyperi ntense foci involving cerebral white matter on the FLAIR sequences. The findings remain nonspecific t maureen may reflect microvascular changes, advanced for the patient's age.. The findings correlate with the previous exam. The diffusion imaging reveals no evidence of acute infarction. The findings remai n most compatible with incidental enhancing developmental venous anomaly within the right frontal lob e. No interval developing intracranial enhancing lesions are appreciated. The ventricular system remains appropriate in size and configuration without evidence of subependymal nodules. The hippocampi remain appropriate in volume and signal intensity at. No developing extra-ax ial fluid collections or significant mass effect is identified. CRANIOCERVICAL JUNCTION: No significant abnormality. VASCULAR FLOW-VOIDS: No significant abnormality. ORBITS: No significant abnormality of visualized orbits. SINUSES / MASTOIDS: No significant abnormality in the visualized paranasal sinuses or mastoid air matias ls. ADDITIONAL FINDINGS: None. IMPRESSION: 1. There are continued multiple scattered hyperintense foci involving cerebral white matter which rem ain nonspecific without significant overall change from 05/16/2021. There is no evidence of recent in farction or corresponding intracranial enhancement. Signer Name: Jeremias Javier MD Signed: 12/04/2021 5:54 PM Workstation Name: [id number]
[2021-12-05 07:18] LABS: Basophils % (Auto) 0.5 % (0.0-1.8); Eosinophils # (Auto) 0.1 K/mm3 (0.0-0.4); Eosinophils % (Auto) 1.6 % (0.0-4.3); Hematocrit 23.7 % (30.3-42.9); Lymphocytes # (Auto) 3.1 K/mm3 (1.2-5.4); Lymphocytes % (Auto) 38.5 % (13.4-35.0); Mean Corpuscular HGB Conc 30 % (30-34); Monocytes # (Auto) 0.6 K/mm3 (0.0-0.8); Platelet Count 282 K/mm3 (140-440); Red Blood Count 4.39 M/mm3 (3.65-5.03)
[2021-12-05 07:19] LABS: Mean Corpuscular Volume 54 fl (79-97); Red Cell Distribution Width 21.8 % (13.2-15.2)
[2021-12-05 07:32] LABS: Blood Urea Nitrogen 8 mg/dL (7-17); Calcium 9.3 mg/dL (8.4-10.2); Hemolysis Index 2
[2021-12-05 07:46] LABS: BUN/Creatinine Ratio 16
[2021-12-05] MEDS ORDERED: SODIUM CHLORIDE 0.9% 500 ML 500 ML IV NR (08:13)
[2021-12-05] MEDS: LACOSAMIDE 100 MG TAB PO SCH (09:33)
[2021-12-05] MEDS: levETIRAcetam 500 MG TAB PO SCH (09:33)
[2021-12-05] MEDS: HEPARIN 5,000 UNIT/1 ML VIAL SUB-Q SCH (09:34)
[2021-12-05] MEDS: FAMOTIDINE 20 MG TAB PO SCH (09:34)
[2021-12-05] MEDS ORDERED: SPIRONOLACTONE 50 MG TAB PO SCH (10:00)
[2021-12-05] MEDS ORDERED: amLODIPine 10 MG TAB PO SCH (10:00)
[2021-12-05] MEDS ORDERED: POTASSIUM CHLORIDE ER 10 MEQ TAB PO SCH (10:00)
--- NOTE | 2021-12-05 10:48 | Discharge Summary ---
Providers - Providers Date of Admission: 12/02/21 18:00 Date of discharge: 12/05/21 Attending physician: GIANNA HENDRICKSON 12/02/21 18:00 Consult to Physician [CONS] Routine Comment: Consulting Provider: AMOS JO Physician Instructions: Reason For Exam: Seizure disorder Primary care physician: MUNIRA VARGAS Hospitalization Reason for admission: sz Condition: Fair Hospital course: 41 yo female with seizure d/o and noncompliance, who presented with two days of seizure activity. The patient was seen in the ED the day prior to admission and the Keppra was increased but the patient was not able to take the adjusted dose. She was noted to have another seizure and thus admitted to the hospital. The patient was seen by neurology who recommended continuing Vimpat 200 mg p.o. twice daily and Keppra 750 mg p.o. twice daily. Patient was placed under seizure precautions and also recommendations were for EEG and MRI brain. If the EEG and MRI are negative patient will likely discharge home. Other complications during hospital stay included symptomatic anemia with a hemoglobin of 7.0. Etiology is likely secondary to metromenorrhagia based on the patient's history. Patient will receive 1 unit of PRBCs prior to discharge. Dedicated discharge time 35 minutes Disposition: 30 STILL A PATIENT Final Discharge Diagnosis (Prints w/discharge instructions): Anemia, seizure disorder, medical noncompliance Core Measure Documentation - Palliative Care Palliative Care/ Comfort Measures: Not Applicable - Core Measures Any of the following diagnoses?: none Exam - Constitutional Vitals: Temp Pulse Resp BP Pulse Ox 98.7 F 68 18 115/74 95 12/05/21 05:05 12/05/21 05:05 12/05/21 05:05 12/05/21 05:05 12/05/21 05:05 General appearance: Present: no acute distress, well-nourished - EENT Eyes: Present: PERRL ENT: hearing intact, clear oral mucosa - Neck Neck: Present: supple, normal ROM - Respiratory Respiratory effort: normal Respiratory: bilateral: CTA - Cardiovascular Heart Sounds: Present: S1 & S2. Absent: rub, click - Extremities Extremities: pulses symmetrical, No edema Peripheral Pulses: within normal limits - Abdominal General gastrointestinal: Present: soft, non-tender, non-distended, normal bowel sounds Female genitourinary: Present: normal - Integumentary Integumentary: Present: clear, warm, dry - Musculoskeletal Musculoskeletal: gait normal, strength equal bilaterally - Psychiatric Psychiatric: appropriate mood/affect, intact judgment & insight - Neurologic Neurologic: CNII-XII intact, moves all extremities Plan Activity: advance as tolerated Weight Bearing Status: Weight Bear as Tolerated Diet: regular Follow up with: MUNIRA VARGAS MD [Primary Care Provider] - 7 Days Prescriptions: amLODIPine 10 mg PO DAILY #30 tab levETIRAcetam [Keppra TAB] 750 mg PO BID #60 tab Lacosamide [Vimpat] 200 mg PO Q12HR #60 tablet
[2021-12-05 18:35] VITALS: BP 126/74
[2021-12-05 20:23] LABS: Hemoglobin 8.7 gm/dl (10.1-14.3)
== END 2021-12-05 20:30 | disposition home or self-care (01) | DRG 101 ==
LOC: ED 00:49 → 3A 18:00
PROVIDERS: ADMIT Internal Medicine; ATTEND Hospitalist
PROC: 30233N1 Transfusion of Nonautologous Red Blood Cells into Peripheral Vein, Percutaneous Approach (ICD-10-PCS; principal; 2021-12-05)
DX: G40.901 Epilepsy, unspecified, not intractable, with status epilepticus (principal); I10 Essential (primary) hypertension; Z91.19 Patient's noncompliance with other medical treatment and regimen; D64.9 Anemia, unspecified
CPT/HCPCS: 36415; 70553; 80048; 80053; 82550; 83735; 85014; 85018; 85025; 86850; 86900; 86901; 86920; G0378; J3490; J7060; A9575; C9254; J1644; J1953; J2060; J2405; J7040; J7042; P9016